=== PATIENT | male | born 1935 | race Caucasian/White ===

== ENCOUNTER 2022-09-20 22:06 | Inpatient (IN) | payer MEDICARE, OTHER ==
[~2022-09-20] VITALS: Ht 170.2 cm; Wt 74.8 kg
[2022-09-20 22:49] LABS: BASOPHILS # (AUTO) 0.1 K/uL (0.0-0.2); BASOPHILS % (AUTO) 0.5 % (0.0-2.0); HEMATOCRIT 47 % (39-51); HEMOGLOBIN 15.2 g/dL (13.5-17.5); LYMPHOCYTES # (AUTO) 0.9 K/uL (0.8-4.8); LYMPHOCYTES % (AUTO) 5.4 % (20.0-44.0); MEAN CORPUSCULAR HGB CONC 32 g/dl (31.0-36.0); MEAN CORPUSCULAR VOLUME 95 fL (80-96); MONOCYTES # (AUTO) 0.6 K/uL (0.1-1.30); MONOCYTES % (AUTO) 3.6 % (2.0-12.0); NEUTROPHILS # (AUTO) 14.4 K/uL (1.8-8.9); NEUTROPHILS % (AUTO) 90.5 % (43.0-81.0); PLATELET COUNT (AUTO) 306 K/uL (150-450); RED BLOOD CELL COUNT(AUTO) 4.97 MIL/uL (4.5-6.0); WHITE BLOOD COUNT (AUTO) 15.9 K/uL (4.3-11.0)
[2022-09-20 22:56] LABS: CALCIUM, SERUM 8.9 mg/dL (8.5-10.1); CARBON DIOXIDE 25 mmol/L (21-32); CHLORIDE 103 mmol/L (98-107); CREATININE 1.4 mg/dL (0.6-1.3); POTASSIUM 4.9 mmol/L (3.5-5.1); SODIUM SERUM 135 mmol/L (136-145); UREA NITROGEN, BLOOD 50 mg/dL (7-18)
[2022-09-20 23:10] LABS: ALANINE AMINOTRANSFERASE 64 U/L (12-78); ALBUMIN 2.9 g/dL (3.4-5.0); ALKALINE PHOSPHATASE 106 U/L (46-116); ASPARTATE AMINOTRANSFERASE 28 U/L (15-37); BILIRUBIN,DIRECT 0.4 mg/dL (0.0-0.2); BILIRUBIN,TOTAL 1.1 mg/dL (0.2-1.0); TOTAL PROTEIN, SERUM 7.4 g/dL (6.4-8.2)
[2022-09-20 23:16] LABS: GLUCOSE 397 mg/dL (74-106)
[2022-09-20 23:34] LABS: BILIRUBIN,URINE NEGATIVE (NEGATIVE); COLOR,URINE OTHER (YELLOW); LEUKOCYTE ESTERASE ,URINE NEGATIVE (NEGATIVE); NITRITE, URINE NEGATIVE (NEGATIVE); PROTEIN,URINE NEGATIVE (NEGATIVE); UGLUCOSE 2+ mg/dL (NEGATIVE); UROBILINOGEN,URINE 0.2 EU/dL (0.2)
[2022-09-20 23:50] LABS: BACTERIA,URINE Rare /HPF (None Seen); RBC,URINE 0-2 /HPF (0-2); SQUAMOUS EPITHELIAL CELL,UR Rare /HPF (None Seen); WBC,URINE 0-2 /HPF (0-3)
[2022-09-21] MEDS ORDERED: INSULIN REGULAR, HUMAN 100 UNIT/ML 10 ML VIAL SQ ONE
[2022-09-21] MEDS ORDERED: ENOXAPARIN SODIUM 40 MG/0.4 ML DISP.SYRIN SQ SCH (00:54)
[2022-09-21] MEDS ORDERED: ACETAMINOPHEN 325 MG TABLET PO PRN (01:00)
[2022-09-21] MEDS ORDERED: Z GUARD REMEDY 4 OZ OINT TP PRN (01:00)
[2022-09-21] MEDS ORDERED: MAG HYDROX/AL HYDROX/SIMETH 30 ML UDC PO PRN (01:00)
[2022-09-21] MEDS ORDERED: IV NS 0.9% 1,000 ML IV PRN ×2 (01:00→10:00)
[2022-09-21] MEDS ORDERED: HYDROCODONE/APAP 5/325MG TABLET PO PRN (01:00)
[2022-09-21] MEDS ORDERED: MORPHINE SULFATE INJ 2 MG/ML DISP.SYRIN IV PRN (01:00)
[2022-09-21] MEDS ORDERED: MAGNESIUM HYDROXIDE 30 ML UDC PO PRN (01:00)
[2022-09-21] MEDS ORDERED: ONDANSETRON HCL/PF 4 MG/2 ML VIAL IVP PRN (01:00)
[2022-09-21] MEDS ORDERED: DEXTROSE 50%-WATER 50 ML DISP.SYRIN IV PRN (01:00)
[2022-09-21] MEDS ORDERED: ZOLPIDEM TARTRATE 5 MG TABLET PO PRN (01:00)
[2022-09-21 02:40] VITALS: BP 128/80
[2022-09-21 03:00] VITALS: BP 128/80
[2022-09-21] MEDS: BLOOD SUGAR DIAGNOSTIC 1 EACH STRIP IN SCH ×4 (06:49→21:20)
[2022-09-21] MEDS: INSULIN REGULAR, HUMAN 100 UNIT/ML 3 ML VIAL SQ PRN ×4 (06:50→21:24)
[2022-09-21] MEDS: PANTOPRAZOLE 40 MG TABLET.DR PO SCH ×2 (07:39→10:42)
[2022-09-21] MEDS ORDERED: TIMO5DRO18 LEFTEYE (08:29)
[2022-09-21] MEDS ORDERED: CLOP75TA15 PO (08:29)
[2022-09-21] MEDS ORDERED: POLY17PO4 PO (08:29)
[2022-09-21] MEDS ORDERED: FINA5TAB11 PO (08:29)
[2022-09-21] MEDS ORDERED: DICL100G34 TD (08:29)
[2022-09-21] MEDS ORDERED: CHOL100043 PO (08:29)
[2022-09-21] MEDS ORDERED: POTA20TA83 PO (08:29)
[2022-09-21] MEDS ORDERED: CARV6.252 PO (08:29)
[2022-09-21] MEDS ORDERED: DONE23TA3 PO (08:29)
[2022-09-21] MEDS ORDERED: PANT40TA2 PO (08:29)
[2022-09-21] MEDS ORDERED: OLAN10TA3 PO (08:29)
[2022-09-21] MEDS ORDERED: RIVA10TA PO (08:29)
[2022-09-21] MEDS ORDERED: ZOLP5TAB8 PO (08:29)
[2022-09-21] MEDS ORDERED: ONDA4TAB5 PO (08:29)
[2022-09-21] MEDS ORDERED: DUTA0.5C37 PO (08:29)
[2022-09-21] MEDS ORDERED: KETO5DRO39 LEFTEYE (08:29)
[2022-09-21] MEDS ORDERED: FURO40TA5 PO (08:29)
[2022-09-21] MEDS ORDERED: DOCU250C14 PO (08:29)
[2022-09-21] MEDS ORDERED: TAMS-12 PO (08:29)
[2022-09-21] MEDS ORDERED: BEPO10DR EACHEYE (08:29)
[2022-09-21] MEDS ORDERED: DEXL60CA3 PO (08:29)
[2022-09-21 08:32] VITALS: BP 117/74
[2022-09-21] MEDS ORDERED: KETOROLAC EYE 0.5% 3 ML BOTTLE LEFTEYE PRN (10:00)
[2022-09-21] MEDS ORDERED: OLANZAPINE 10 MG TABLET PO PRN (10:00)
[2022-09-21] MEDS: DUTASTERIDE (0.5 MG) 0.5 MG CAPSULE PO SCH (10:42)
[2022-09-21] MEDS: RIVAROXABAN 15 MG TABLET PO SCH (10:43)
[2022-09-21] MEDS: CLOPIDOGREL BISULFATE 75 MG TABLET PO SCH (10:45)
[2022-09-21] MEDS: CARVEDILOL 6.25 MG TABLET PO SCH ×2 (10:45→16:20)
[2022-09-21] MEDS: DOCUSATE SODIUM 250 MG CAPSULE PO SCH ×2 (10:45→16:19)
[2022-09-21] MEDS: TIMOLOL 0.5% SOLN OPHTH 5 ML BOTTLE LEFTEYE SCH (10:46)
[2022-09-21] MEDS: TAMSULOSIN 0.4 MG CAP.SR.24H PO SCH ×2 (10:48→16:19)
[2022-09-21 11:02] LABS: HEMATOCRIT 46 % (39-51); HEMOGLOBIN 14.8 g/dL (13.5-17.5); LYMPHOCYTES # (AUTO) 1.5 K/uL (0.8-4.8); LYMPHOCYTES % (AUTO) 5.8 % (20.0-44.0); MEAN CORPUSCULAR HGB CONC 33 g/dl (31.0-36.0); MEAN CORPUSCULAR VOLUME 96 fL (80-96); MONOCYTES # (AUTO) 1.3 K/uL (0.1-1.30); MONOCYTES % (AUTO) 5.1 % (2.0-12.0); NEUTROPHILS # (AUTO) 23.4 K/uL (1.8-8.9); NEUTROPHILS % (AUTO) 89.1 % (43.0-81.0); PLATELET COUNT (AUTO) 323 K/uL (150-450); RED BLOOD CELL COUNT(AUTO) 4.76 MIL/uL (4.5-6.0); WHITE BLOOD COUNT (AUTO) 26.3 K/uL (4.3-11.0)
[2022-09-21 11:19] LABS: CALCIUM, SERUM 8.9 mg/dL (8.5-10.1); CREATININE 1.1 mg/dL (0.6-1.3); MAGNESIUM 2.3 mg/dL (1.8-2.4); PHOSPHORUS 5.3 mg/dL (2.5-4.9); POTASSIUM 4.3 mmol/L (3.5-5.1)
[2022-09-21] MEDS: HOME MED MISCELLANEOUS EACHEYE SCH (16:17)
[2022-09-21 16:22] VITALS: BP 110/60
[2022-09-21 20:00] VITALS: BP 101/72
[2022-09-21] MEDS: TRAZODONE 50 MG TABLET PO SCH (21:48)
[2022-09-22 05:40] LABS: BASOPHILS # (AUTO) 0.1 K/uL (0.0-0.2); BASOPHILS % (AUTO) 0.2 % (0.0-2.0); EOSINOPHILS % (AUTO) 0.4 % (0.0-6.0); HEMATOCRIT 44 % (39-51); HEMOGLOBIN 13.9 g/dL (13.5-17.5); LYMPHOCYTES % (AUTO) 9.1 % (20.0-44.0); MEAN CORPUSCULAR HGB CONC 32 g/dl (31.0-36.0); MEAN CORPUSCULAR VOLUME 96 fL (80-96); MONOCYTES # (AUTO) 1.7 K/uL (0.1-1.30); MONOCYTES % (AUTO) 7.9 % (2.0-12.0); NEUTROPHILS # (AUTO) 18.2 K/uL (1.8-8.9); NEUTROPHILS % (AUTO) 82.4 % (43.0-81.0); PLATELET COUNT (AUTO) 297 K/uL (150-450); RED BLOOD CELL COUNT(AUTO) 4.58 MIL/uL (4.5-6.0); WHITE BLOOD COUNT (AUTO) 22.1 K/uL (4.3-11.0)
[2022-09-22 05:58] LABS: ALBUMIN 2.7 g/dL (3.4-5.0); BILIRUBIN,TOTAL 1.5 mg/dL (0.2-1.0); CALCIUM, SERUM 8.5 mg/dL (8.5-10.1); CREATININE 1.1 mg/dL (0.6-1.3); MAGNESIUM 2.1 mg/dL (1.8-2.4); PHOSPHORUS 4.1 mg/dL (2.5-4.9); POTASSIUM 4.8 mmol/L (3.5-5.1); TOTAL PROTEIN, SERUM 6.6 g/dL (6.4-8.2)
[2022-09-22 06:23] LABS: THYROID STIMULATING HORMONE 1.622 uIU/mL (0.358-3.74)
[2022-09-22] MEDS: BLOOD SUGAR DIAGNOSTIC 1 EACH STRIP IN SCH ×4 (06:30→21:20)
[2022-09-22] MEDS: INSULIN REGULAR, HUMAN 100 UNIT/ML 3 ML VIAL SQ PRN ×4 (06:33→21:26)
[2022-09-22] MEDS: PANTOPRAZOLE 40 MG TABLET.DR PO SCH ×2 (07:30→07:56)
[2022-09-22 08:08] VITALS: BP 90/62
[2022-09-22] MEDS: DONEPEZIL 5 MG TABLET PO SCH (08:27)
[2022-09-22] MEDS: TAMSULOSIN 0.4 MG CAP.SR.24H PO SCH ×2 (08:27→16:54)
[2022-09-22] MEDS: RIVAROXABAN 15 MG TABLET PO SCH (08:28)
[2022-09-22] MEDS: FINASTERIDE (5 MG) 5 MG TABLET PO SCH (08:29)
[2022-09-22] MEDS: DUTASTERIDE (0.5 MG) 0.5 MG CAPSULE PO SCH (08:29)
[2022-09-22] MEDS: DOCUSATE SODIUM 250 MG CAPSULE PO SCH ×2 (08:29→16:54)
[2022-09-22] MEDS: CLOPIDOGREL BISULFATE 75 MG TABLET PO SCH (08:29)
[2022-09-22] MEDS: CARVEDILOL 6.25 MG TABLET PO SCH ×2 (08:29→16:54)
[2022-09-22] MEDS: TIMOLOL 0.5% SOLN OPHTH 5 ML BOTTLE LEFTEYE SCH (08:34)
[2022-09-22] MEDS: HOME MED MISCELLANEOUS EACHEYE SCH ×2 (08:34→16:54)
[2022-09-22] MEDS: SPIRONOLACTONE 25 MG TABLET PO SCH (09:15)
[2022-09-22 16:17] VITALS: BP 90/57
[2022-09-22 20:00] VITALS: BP_SYST 97; BP_DIAS 63; BP_DIAS 67
[2022-09-22] MEDS: TRAZODONE 50 MG TABLET PO SCH ×2 (22:00→23:03)
[2022-09-23] MEDS: BLOOD SUGAR DIAGNOSTIC 1 EACH STRIP IN SCH ×4 (05:47→21:19)
[2022-09-23 06:42] LABS: BASOPHILS % (AUTO) 0.2 % (0.0-2.0); HEMATOCRIT 43 % (39-51); HEMOGLOBIN 13.8 g/dL (13.5-17.5); LYMPHOCYTES # (AUTO) 1.9 K/uL (0.8-4.8); LYMPHOCYTES % (AUTO) 11.5 % (20.0-44.0); MEAN CORPUSCULAR HGB CONC 32 g/dl (31.0-36.0); MEAN CORPUSCULAR VOLUME 96 fL (80-96); MONOCYTES % (AUTO) 11.9 % (2.0-12.0); NEUTROPHILS # (AUTO) 12.4 K/uL (1.8-8.9); NEUTROPHILS % (AUTO) 74.4 % (43.0-81.0); PLATELET COUNT (AUTO) 267 K/uL (150-450); RED BLOOD CELL COUNT(AUTO) 4.45 MIL/uL (4.5-6.0); WHITE BLOOD COUNT (AUTO) 16.7 K/uL (4.3-11.0)
[2022-09-23 06:53] LABS: CALCIUM, SERUM 8.6 mg/dL (8.5-10.1); CARBON DIOXIDE 30 mmol/L (21-32); CHLORIDE 104 mmol/L (98-107); CREATININE 0.9 mg/dL (0.6-1.3); GLUCOSE 114 mg/dL (74-106); MAGNESIUM 2.1 mg/dL (1.8-2.4); PHOSPHORUS 3.9 mg/dL (2.5-4.9); POTASSIUM 5.5 mmol/L (3.5-5.1); SODIUM SERUM 137 mmol/L (136-145); UREA NITROGEN, BLOOD 30 mg/dL (7-18)
[2022-09-23] MEDS: PANTOPRAZOLE 40 MG TABLET.DR PO SCH (07:35)
[2022-09-23 08:00] VITALS: BP 116/68
[2022-09-23] MEDS: DOCUSATE SODIUM 250 MG CAPSULE PO SCH ×2 (08:29→16:07)
[2022-09-23] MEDS: TIMOLOL 0.5% SOLN OPHTH 5 ML BOTTLE LEFTEYE SCH (08:29)
[2022-09-23] MEDS: DUTASTERIDE (0.5 MG) 0.5 MG CAPSULE PO SCH (08:29)
[2022-09-23] MEDS: HOME MED MISCELLANEOUS EACHEYE SCH ×2 (08:29→16:07)
[2022-09-23] MEDS: TAMSULOSIN 0.4 MG CAP.SR.24H PO SCH ×2 (08:29→16:07)
[2022-09-23] MEDS: DONEPEZIL 5 MG TABLET PO SCH (08:29)
[2022-09-23] MEDS: RIVAROXABAN 15 MG TABLET PO SCH (08:30)
[2022-09-23] MEDS: CLOPIDOGREL BISULFATE 75 MG TABLET PO SCH (08:30)
[2022-09-23] MEDS: FINASTERIDE (5 MG) 5 MG TABLET PO SCH (08:30)
[2022-09-23] MEDS: CARVEDILOL 6.25 MG TABLET PO SCH ×2 (08:30→16:07)
[2022-09-23] MEDS: SPIRONOLACTONE 25 MG TABLET PO SCH (08:31)
[2022-09-23 09:01] LABS: ABG BASE EXCESS -2.1 mmol/L; ABG PCO2 35.3 mmHg (35.0-45.0); ABG PO2 64.7 mmHg (75.0-100.0); COHb 1.1 % (0.5-1.5); MetHb 0.1 % (0.0-1.5); O2Hb 89.5 % (94.0-97.0); SITE, ABG Left Radial; VENT MODE, BG room air
[2022-09-23 10:21] VITALS: BP 116/68
[2022-09-23] MEDS: INSULIN REGULAR, HUMAN 100 UNIT/ML 3 ML VIAL SQ PRN ×3 (11:44→21:31)
[2022-09-23] MEDS ORDERED: SODIUM POLYSTYRENE SULF. PWD 15 GM UDC PO ONE (15:00)
[2022-09-23 16:00] VITALS: BP 105/62
[2022-09-23 20:00] VITALS: BP 100/62
[2022-09-23] MEDS: TRAZODONE 50 MG TABLET PO SCH (21:19)
[2022-09-24] MEDS: BLOOD SUGAR DIAGNOSTIC 1 EACH STRIP IN SCH ×3 (06:02→17:22)
[2022-09-24] MEDS: PANTOPRAZOLE 40 MG TABLET.DR PO SCH (07:35)
[2022-09-24 08:00] VITALS: BP 112/64
[2022-09-24] MEDS: DONEPEZIL 5 MG TABLET PO SCH (08:38)
[2022-09-24] MEDS: FINASTERIDE (5 MG) 5 MG TABLET PO SCH (08:39)
[2022-09-24] MEDS: CLOPIDOGREL BISULFATE 75 MG TABLET PO SCH (08:39)
[2022-09-24] MEDS: DOCUSATE SODIUM 250 MG CAPSULE PO SCH ×2 (08:39→16:26)
[2022-09-24] MEDS: SPIRONOLACTONE 25 MG TABLET PO SCH (08:39)
[2022-09-24] MEDS: DUTASTERIDE (0.5 MG) 0.5 MG CAPSULE PO SCH (08:39)
[2022-09-24] MEDS: CARVEDILOL 6.25 MG TABLET PO SCH ×3 (08:39→17:03)
[2022-09-24] MEDS: TAMSULOSIN 0.4 MG CAP.SR.24H PO SCH ×2 (08:39→16:26)
[2022-09-24] MEDS: RIVAROXABAN 15 MG TABLET PO SCH (08:40)
[2022-09-24] MEDS: HOME MED MISCELLANEOUS EACHEYE SCH ×2 (08:44→16:26)
[2022-09-24] MEDS: TIMOLOL 0.5% SOLN OPHTH 5 ML BOTTLE LEFTEYE SCH (08:44)
[2022-09-24] MEDS: INSULIN REGULAR, HUMAN 100 UNIT/ML 3 ML VIAL SQ PRN ×2 (11:52→17:23)
[2022-09-24 16:07] VITALS: BP 87/51
[2022-09-24 17:00] VITALS: BP 119/67
[2022-09-24 17:03] VITALS: BP 119/67
== END 2022-09-24 18:25 | DRG 683 ==
LOC: ER 22:08 → TELE 09-21 02:23 → MED 09-21 02:59
PROVIDERS: ADMIT Nurse Practitioner Acute Care; ATTEND Nurse Practitioner Acute Care
DX: N17.0 Acute kidney failure with tubular necrosis (principal); D68.69 Other thrombophilia; I50.22 Chronic systolic (congestive) heart failure; E87.1 Hypo-osmolality and hyponatremia; E86.0 Dehydration; I48.91 Unspecified atrial fibrillation; I25.10 Atherosclerotic heart disease of native coronary artery without angina pectoris; E87.5 Hyperkalemia; K21.9 Gastro-esophageal reflux disease without esophagitis; Z86.16 Personal history of COVID-19; D72.829 Elevated white blood cell count, unspecified; Z20.822 Contact with and (suspected) exposure to COVID-19; F03.90 Unspecified dementia, unspecified severity, without behavioral disturbance, psychotic disturbance, mood disturbance, and anxiety; R53.1 Weakness; N40.0 Benign prostatic hyperplasia without lower urinary tract symptoms; I11.0 Hypertensive heart disease with heart failure
CPT/HCPCS: 36415; 36600; 71045-TC; 74018; 76770-TC; 80048-TC; 80053-TC; 80061-TC; 80076-TC; 81001; 82962-TC; 83735-TC; 83880; 84100-TC; 84443-TC; 84484-TC; 85025-TC; 87081-TC; 87086-TC; 93307-TC; 97116-TC; 97530-TC; A4223; C9803; G0378; J1815; J2405